=== PATIENT | male | born 1980 | race African-American/Black ===

== ENCOUNTER 2021-07-13 04:46 | Emergency (ER) | payer OTHER ==
[2021-07-13] MEDS ORDERED: Lorazepam 2 MG/ML VIAL ONE (05:13)
[2021-07-13 05:27] LABS: #Basophils 0.1 10x3/uL (0.0-0.2); #Monocytes 1.2 10x3/uL (0.0-1.1); #Neutrophils 7.4 10x3/uL (1.5-8.4); %Basophils 0.8 % (0.0-2.0); %Eosinophils 0.1 % (0.0-6.0); %Lymphocytes 9.5 % (18.0-47.0); %Monocytes 12.4 % (0.0-10.0); %Neutrophils 76.5 % (40.0-75.0); Hemoglobin 15.8 g/dL (13.5-17.5); Mean Corpuscular HGB CONC 33.9 g/dL (32.0-36.0); Mean Corpuscular Hemoglobin 30.9 pg (27.0-33.0); Mean Corpuscular Volume 91.2 fl (81.2-95.1); Mean Platelet Volume 9.5 fl (7.4-10.4); Platelet Count 266 10x3/uL (150-450); Red Blood Cell (RBC) Count 5.11 10x6/uL (4.32-5.72); White Blood Cell (WBC) Count 9.7 10x3/uL (3.5-10.5)
[2021-07-13 06:16] LABS: Acetaminophen Less than 6.0 mcg/mL (10.0-30.0); Alcohol Less than 10 mg/dL (Less than 10); CK (CPK) 2069 U/L (30-200); Salicylate Less than 8.0 mg/dL (15.0-30.0)
[2021-07-13 06:28] LABS: ALT (SGPT) 26 U/L (8-55); AST (SGOT) 57 U/L (5-34); Albumin 5.1 g/dL (3.5-5.0); Alkaline Phosphatase 62 U/L (40-110); Anion Gap 18 mmol/L (10-20); BUN (Urea Nitrogen) 17 mg/dL (8.9-20.6); Bilirubin, Total 1.5 mg/dL (0.2-1.2); Calc. Creatinine Clearance 0 mL/min (70-130); Calcium 9.9 mg/dL (7.8-10.44); Carbon Dioxide 22 mmol/L (22-29); Chloride 103 mmol/L (98-107); Globulin 3.3 g/dL (2.4-3.5); Glucose 106 mg/dL (70-105); Magnesium 1.8 mg/dL (1.6-2.6); Potassium 3.5 mmol/L (3.5-5.1); Protein, Total 8.4 g/dL (6.0-8.3); Sodium 139 mmol/L (136-145)
[2021-07-13 10:45] LABS: ALT (SGPT) 19 U/L (8-55); AST (SGOT) 46 U/L (5-34); Albumin 3.9 g/dL (3.5-5.0); Alkaline Phosphatase 50 U/L (40-110); Anion Gap 10 mmol/L (10-20); BUN (Urea Nitrogen) 13 mg/dL (8.9-20.6); Bilirubin, Total 1.3 mg/dL (0.2-1.2); CK (CPK) 1647 U/L (30-200); Calc. Creatinine Clearance 0 mL/min (70-130); Calcium 8.2 mg/dL (7.8-10.44); Carbon Dioxide 25 mmol/L (22-29); Chloride 108 mmol/L (98-107); Globulin 2.5 g/dL (2.4-3.5); Glucose 89 mg/dL (70-105); Potassium 3.6 mmol/L (3.5-5.1); Protein, Total 6.4 g/dL (6.0-8.3); Sodium 139 mmol/L (136-145)
[2021-07-13 12:15] LABS: Amphetamine Not Detected (NotDetected); Barbiturates Screen Not Detected (NotDetected); Benzodiazepine Screen Detected (NotDetected); Cocaine Metabolite Screen Detected (NotDetected); Methadone Not Detected (NotDetected); Methamphetamine Not Detected (NotDetected); Opiate Screen Not Detected (NotDetected); Oxycodone Screen Not Detected (NotDetected); Phencyclidine (PCP) Not Detected (NotDetected); THC/Cannabinoid Screen Not Detected (NotDetected); Tricyclic Screen Not Detected (NotDetected)
[2021-07-13 13:47] LABS: Bilirubin Neg (Negative); Blood, Urine 25 (Negative); Clarity Clear (Clear); Glucose, Urine (Dipstick) Normal (Negative); Ketone, Urine 15 mg/dL (Negative); Leukocyte Negative (Negative); Nitrite Negative (Negative); Protein, Urine (Dipstick) 100 mg/dl (Neg-Trace); Specific Gravity, Urine 1.015 (1.002-1.036); Urobilinogen Normal mg/dL (Less than 2)
[2021-07-13 14:00] LABS: Bacteria/HPF None Seen HPF (None Seen); RBC/HPF 0-3 HPF (0-3); Squamous Epithelial 0-3 HPF (0-3); WBC/HPF 0-3 HPF (0-3)
== END 2021-07-13 12:15 | disposition home or self-care (01) ==
LOC: CSHERS 04:46
DX: M62.82 Rhabdomyolysis (principal); F14.10 Cocaine abuse, uncomplicated; F17.210 Nicotine dependence, cigarettes, uncomplicated; Z79.899 Other long term (current) drug therapy
CPT/HCPCS: 36415; 71045; 80053; 80306; 80307; 81003; 81015; 82550; 83735; 84443; 84484; 85025; 93005; 96374; J2060